=== PATIENT | male | born 1970 | race Two or more races ===

== ENCOUNTER 2024-04-24 07:27 | Emergency (ER) | payer BC, OTHER ==
[~2024-04-24] VITALS: Ht 182.9 cm; Wt 108.0 kg
--- NOTE | 2024-04-24 07:51 | ED.PDOC ---
HPI Comments 53-year-old male presents for a laceration x1 day. Mechanism of injury: struck to the right eye brow while play fighting Laceration is located to right upper eyebrow. Last tetanus:> 10 years Chief Complaint: Laceration Time Seen by MD: 07:46 Primary Care Provider: IZABELA Vasquez Notes: Nurses Notes, Medications, Allergies Allergies: Coded Allergies: NO KNOWN ALLERGIES (Unverified , 04/24/24) Information Source: Patient Mode of Arrival: Ambulatory Complexity: Intermediate Timing: Minutes Laceration Location: Face Mechanism: Blunt Trauma Laceration Length (cm): 2 Skin Type: Linear Depth of Injury: Skin Tendon Injury: 0% Capillary Refill: < 3 seconds Tender: Mild Discharge: None Associated Signs and Symptoms: None Past Medical History PAST MEDICAL HISTORY: Denies Surgical History: Denies all surgeries Family History Family History: Reviewed,noncontributory to illness Social History Smoker: Non-Smoker Alcohol: Denies ETOH Use Drugs: Denies Drug Use All Other Systems: Reviewed and Negative (Per HPI) Physical Exam General Appearance: No Apparent Distress, Normal HEENT: Normal ENT Inspection, Pharynx Normal, TMs Normal Neck: Full Range of Motion, Non-Tender, Normal, Normal Inspection Respiratory: Chest Non-Tender, Lungs Clear, No Accessory Muscle Use, No Respiratory Distress, Normal Breath Sounds Cardiovascular: No Edema, No JVD, No Murmur, No Gallop, Normal Peripheral Pulses, Regular Rate/Rhythm Breast Exam: Deferred Gastrointestinal: No Organomegaly, Non Tender, No Pulsatile Mass, Normal Bowel Sounds, Soft Genitalia: Deferred Pelvic: Deferred Rectal: Deferred Extremities: No calf tenderness, Normal capillary refill, Normal inspection, Normal range of motion, Non-tender, No pedal edema Musculoskeletal : Apperance: Normal Neurologic: Alert, trimming inspector II-XII nml as Tested, No Motor Deficits, Normal Affect, Normal Mood, No Sensory Deficits Cerebellar Function: Normal Reflexes: Normal Skin: Dry, Normal Color, Warm Lymphatic: No Adenopathy Was a procedure done? Was a procedure done?: Yes Sedation Sedation?: No Laceration Repair : Location right eyebrow Length 2 Anesthetic: Lidocaine Laceration Repair Prep: Saline, Betadine, Manual Scrub Laceration Repair Wound Comple: epidermis/dermis repair Laceration Repair: Simple, Bacitracin, Non-adherent gauze, Gauze Informed consent obtained: Yes Risks, benefits, and alternati: Yes Differential diagnosis Generic Laceration: Tendon Injury, Abrasion/Contusion, Laceration X-Ray, Labs, Meds, VS Vital Signs Date Time Temp Pulse Resp B/P (MAP) Pulse Ox O2 Delivery O2 Flow Rate FiO2 04/24/24 08:16 95 18 97 Room Air 04/24/24 08:16 98.7 95 18 150/89 (109) 97 98.7 04/24/24 07:32 98.6 89 20 159/93 (115) 98 Current Medications Medications (Trade) Dose Ordered Sig/Aj Route Start Time Stop Time Status Last Admin Neomycin/ Polymyxin/ Bacitracin (Triple Antibiotic) 1 applic ONCE ONCE TOP 04/24/24 08:00 04/24/24 08:01 DC 04/24/24 08:00 X-Ray, Labs, Meds, VS Comment The skin edges of the laceration were infiltrated with 1% lidocaine The skin surrounding the laceration was scrubbed with Betadine soaked sterile gauze The laceration was irrigated under high-pressure with a 60 mL syringe A total of 1L sterile water was used. Including diluted Betadine solution The laceration was prepped in sterile fashion with sterile drapes On examination under direct light, there was no foreign body seen The laceration was repaired in simple interrupted technique There was no continuing bleeding on repair. There were no complications related to repair Antibiotics for grossly contaminated wounds/open fractures and bite wounds -Cephalexin 500 mg PO Q. 6 hours for 3-5 days for contaminated wounds -Augmentin 875 mg p.o. every 12 hours for 3 to 5 days for bite wounds (dog, cat, or human) * Tetanus prophylaxis: dT or Tdap 0.5, IM if not updated Education and follow-up instructions provided Wound check in 2 days Return sooner for signs of infection such as fevers, increased pain, redness, green, yellow discharge, or any concerns Keep wound dry for 24 to 48 hours; dry dressing may be changed Protect from sunlight and keep area clean and dry. Use soap and water if it gets dirty High risk of possible scarring and education provided on ways to minimize scarring after wound heals Also provided education on possible complications post procedure including wound dehiscence, infection, etc. Time of 1ST Reevaluation: 07:50 Reevaluation 1ST: Improved Patient Education/Counseling: Diagnosis, Treatment Family Education/Counseling: Diagnosis, Treatment Departure 1 Departure Time of Disposition: 08:30 Impression: Primary Impression: Laceration of eyebrow Qualified Codes: S01.111A - Laceration without foreign body of right eyelid and periocular area, initial encounter Disposition: HOME / SELF CARE / HOMELESS Condition: Stable Discharged With: Self Critical Care Note Critical Care Time?: No Stability Stability form required: No Heart Score Heart Score: Heart Score Response (Comments) Value History N/A 0 EKG N/A 0 Age N/A 0 Risk Factors N/A 0 Troponin N/A 0 Total 0 MAINE LEON NP Apr 24, 2024 07:51
[2024-04-24] MEDS: NEOMYCIN-BACITRACIN-POLYM UNITDOSE PKG TOP OINT TOP ONE (08:00)
[2024-04-24 08:16] VITALS: BP 150/89; PULSE 95; RESP 18; TEMP 98.7; O2SAT 97
[2024-04-24] MEDS: LIDOCAINE 1% HCL (LOCAL ANESTH.) INJ 20ML MDV ID ONE (08:22)
== END 2024-04-24 08:47 | disposition home or self-care (01) ==
LOC: ER 07:27
DX: S01.111A Laceration without foreign body of right eyelid and periocular area, initial encounter (principal); W50.0XXA Accidental hit or strike by another person, initial encounter; Y93.89 Activity, other specified; Y92.89 Other specified places as the place of occurrence of the external cause; Y99.8 Other external cause status
CPT/HCPCS: 12011; 99282; J2003